=== PATIENT | male | born 1935 | race Asian ===

== ENCOUNTER 2017-03-25 11:57 | Emergency (ER) | payer MEDICARE ==
[~2017-03-25] VITALS: Ht 172.7 cm; Wt 90.7 kg
[~2017-03-25 11:57] MED LIST: HYDR-4075; LISI-607
[2017-03-25] MEDS ORDERED: ALBUTEROL FS 2.5 MG/3 ML VIAL.NEB NEB ONE (12:30)
[2017-03-25] MEDS ORDERED: predniSONE 20 MG TABLET PO ONE (12:30)
[2017-03-25] MEDS ORDERED: IPRATROPIUM NEB FS 0.5 MG/2.5 ML AMPUL.NEB NEB ONE (12:30)
[2017-03-25] MEDS ORDERED: predniSONE 20 MG TABLET ONE (12:39)
[2017-03-25] MEDS ORDERED: IPRATROPIUM NEB FS 0.5 MG/2.5 ML AMPUL.NEB ONE (12:54)
[2017-03-25] MEDS ORDERED: ALBUTEROL FS 2.5 MG/3 ML VIAL.NEB ONE (12:54)
[2017-03-25 13:42] VITALS: BP 168/80
== END 2017-03-25 13:43 | disposition home or self-care (01) ==
LOC: ER 11:58
DX: J45.901 Unspecified asthma with (acute) exacerbation (principal); I10 Essential (primary) hypertension
CPT/HCPCS: 71010; 94640 ×2; 94799; 99284; A4606; J7512; Z7610

== ENCOUNTER 2018-02-02 08:36 | Outpatient (CLI) | payer MEDICARE ==
[2018-02-02 09:35] LABS: APPEARANCE,URINE CLEAR (CLEAR); BILIRUBIN,URINE NEGATIVE (NEGATIVE); BLOOD, URINE NEGATIVE Ery/uL (NEGATIVE); COLOR,URINE YELLOW (YELLOW); KETONES,URINE NEGATIVE (NEGATIVE); LEUKOCYTE ESTERASE ,URINE NEGATIVE (NEGATIVE); NITRITE, URINE NEGATIVE (NEGATIVE); PH,URINE 7.5 (5.0-8.0); PROTEIN,URINE NEGATIVE (NEGATIVE); UGLUCOSE NEGATIVE (NEGATIVE)
[2018-02-02 09:45] LABS: ALANINE AMINOTRANSFERASE 35 U/L (12-78); ALBUMIN 3.6 g/dL (3.4-5.0); ALKALINE PHOSPHATASE 48 U/L (46-116); ASPARTATE AMINOTRANSFERASE 28 U/L (15-37); BILIRUBIN,TOTAL 1.6 mg/dL (0.2-1.0); CALCIUM, SERUM 9.3 mg/dL (8.5-10.1); CARBON DIOXIDE 33 mmol/L (21-32); CHLORIDE 105 mmol/L (98-107); GLUCOSE 100 mg/dL (74-106); SODIUM SERUM 144 mmol/L (136-145); TOTAL PROTEIN, SERUM 7.6 g/dL (6.4-8.2); UREA NITROGEN, BLOOD 29 mg/dL (7-18)
[2018-02-02 09:55] LABS: BASOPHILS % (AUTO) 0.8 % (0.0-2.0); EOSINOPHILS % (AUTO) 9.5 % (0.0-6.0); HEMATOCRIT 39 % (39-51); HEMOGLOBIN 13.2 g/dL (13.5-17.5); LYMPHOCYTES # (AUTO) 1.3 /CMM (0.8-4.8); LYMPHOCYTES % (AUTO) 31.4 % (20.0-44.0); MEAN CORPUSCULAR HGB CONC 34 g/dl (31.0-36.0); MEAN CORPUSCULAR VOLUME 90 fL (80-96); MONOCYTES # (AUTO) 0.3 /CMM (0.1-1.30); MONOCYTES % (AUTO) 7.2 % (2.0-12.0); NEUTROPHILS # (AUTO) 2.1 /CMM (1.8-8.9); NEUTROPHILS % (AUTO) 51.1 % (43.0-81.0); PLATELET COUNT (AUTO) 215 /CMM (150-450); RDW COEFFICIENT OF VARIATION 13.7 (11.5-15.0); RED BLOOD CELL COUNT(AUTO) 4.38 MIL/uL (4.5-6.0); WHITE BLOOD COUNT (AUTO) 4.1 K/uL (4.3-11.0)
[2018-02-02 10:00] LABS: CHOLESTEROL 136 mg/dL (<200); HDL CHOLESTEROL 57 mg/dL (40-60); LDL 75 mg/dL (0-99); PROSTATE SPECIFIC ANTIGEN SCR 12.31 ng/mL (0.00-4.00); THYROID STIMULATING HORMONE 1.671 uIU/mL (0.358-3.74); TRIGLYCERIDES 56 mg/dL (30-150)
[2018-02-02 10:21] LABS: BACTERIA,URINE Rare /HPF (None Seen); RBC,URINE 0-2 /HPF (0-2); SQUAMOUS EPITHELIAL CELL,UR Rare /HPF (None Seen); WBC,URINE 0-2 /HPF (0-3)
== END 2018-02-02 23:59 | disposition home or self-care (01) ==
LOC: LAB 08:36
PROVIDERS: ATTEND Legal Medicine
DX: I10 Essential (primary) hypertension (principal); E03.9 Hypothyroidism, unspecified; R79.89 Other specified abnormal findings of blood chemistry
CPT/HCPCS: 36415; 80053-TC; 80061-TC; 81000-TC; 82306; 84153-TC; 84443-TC; 85025-TC

== ENCOUNTER 2018-03-11 07:39 | Outpatient (CLI) | payer MEDICARE ==
[2018-03-11 08:37] LABS: ALANINE AMINOTRANSFERASE 40 U/L (12-78); ALBUMIN 3.6 g/dL (3.4-5.0); ALKALINE PHOSPHATASE 45 U/L (46-116); ASPARTATE AMINOTRANSFERASE 29 U/L (15-37); BILIRUBIN,TOTAL 1.8 mg/dL (0.2-1.0); CALCIUM, SERUM 9.3 mg/dL (8.5-10.1); CARBON DIOXIDE 35 mmol/L (21-32); CHLORIDE 105 mmol/L (98-107); GLUCOSE 97 mg/dL (74-106); POTASSIUM 3.8 mmol/L (3.5-5.1); SODIUM SERUM 142 mmol/L (136-145); TOTAL PROTEIN, SERUM 7.7 g/dL (6.4-8.2); UREA NITROGEN, BLOOD 31 mg/dL (7-18)
[2018-03-11 08:42] LABS: INR 0.95 (0.87-1.13)
[2018-03-11 08:49] LABS: APPEARANCE,URINE CLEAR (CLEAR); BILIRUBIN,URINE NEGATIVE (NEGATIVE); BLOOD, URINE NEGATIVE Ery/uL (NEGATIVE); COLOR,URINE YELLOW (YELLOW); KETONES,URINE NEGATIVE (NEGATIVE); LEUKOCYTE ESTERASE ,URINE NEGATIVE (NEGATIVE); NITRITE, URINE NEGATIVE (NEGATIVE); PROTEIN,URINE NEGATIVE (NEGATIVE); UGLUCOSE NEGATIVE (NEGATIVE); UROBILINOGEN,URINE 0.2 EU/dL (0.2)
[2018-03-11 09:15] LABS: BASOPHILS % (AUTO) 0.6 % (0.0-2.0); EOSINOPHILS % (AUTO) 7.2 % (0.0-6.0); HEMATOCRIT 38 % (39-51); HEMOGLOBIN 12.9 g/dL (13.5-17.5); LYMPHOCYTES # (AUTO) 1.7 /CMM (0.8-4.8); LYMPHOCYTES % (AUTO) 33.2 % (20.0-44.0); MEAN CORPUSCULAR HEMOGLOBIN 30 PG (26.0-33.0); MEAN CORPUSCULAR HGB CONC 34 g/dl (31.0-36.0); MEAN CORPUSCULAR VOLUME 89 fL (80-96); MONOCYTES # (AUTO) 0.4 /CMM (0.1-1.30); MONOCYTES % (AUTO) 8.1 % (2.0-12.0); NEUTROPHILS # (AUTO) 2.6 /CMM (1.8-8.9); NEUTROPHILS % (AUTO) 50.9 % (43.0-81.0); PLATELET COUNT (AUTO) 206 /CMM (150-450); RDW COEFFICIENT OF VARIATION 13.5 (11.5-15.0); WHITE BLOOD COUNT (AUTO) 5.1 K/uL (4.3-11.0)
== END 2018-03-11 23:59 | disposition home or self-care (01) ==
LOC: LAB 07:39
PROVIDERS: ATTEND Legal Medicine
DX: Z01.818 Encounter for other preprocedural examination (principal); R97.20 Elevated prostate specific antigen [PSA]
CPT/HCPCS: 36415; 80053-TC; 81000-TC; 85025-TC; 85610-TC; 85730-TC; 87086-TC

== ENCOUNTER 2018-10-14 00:25 | Emergency (ER) | payer MEDICARE, OTHER ==
[~2018-10-14] VITALS: Ht 170.2 cm; Wt 88.0 kg
[~2018-10-14 00:25] MED LIST changes: -LISI-607; +LISI-607 PO
--- NOTE | 2018-10-14 00:35 | NUR ---
PT BIB FRIEND L FOREARM DISCOLORATION AND SWELLING. PT S/P IRON GATE CLOSING ON HIS ARM. PT IN BED 7. WILL CONTINUE TO MONITOR.
[2018-10-14] MEDS ORDERED: HYDROCODONE/APAP 10/325MG 1 EA TABLET ONE (00:55)
[2018-10-14] MEDS ORDERED: ONDANSETRON 4 MG TAB.RAPDIS ONE (00:55)
[2018-10-14] MEDS ORDERED: TDAP [DIPH/PERTUSSIS/TET] 0.5 ML VIAL IM ONE ×2 (00:56→01:00)
[2018-10-14] MEDS ORDERED: SULFAMETH/TRIMETH 800/160 MG 1 UDTAB TABLET PO ONE ×2 (00:56→01:00)
[2018-10-14] MEDS ORDERED: ONDANSETRON 4 MG TAB.RAPDIS SL ONE (01:00)
[2018-10-14] MEDS ORDERED: HYDROCODONE/APAP 10/325MG 1 EA TABLET PO ONE (01:00)
[2018-10-14 01:01] LABS: BASOPHILS # (AUTO) 0.1 /CMM (0.0-0.2); BASOPHILS % (AUTO) 1.3 % (0.0-2.0); EOSINOPHILS % (AUTO) 7.2 % (0.0-6.0); HEMATOCRIT 40 % (39-51); HEMOGLOBIN 13.3 g/dL (13.5-17.5); LYMPHOCYTES # (AUTO) 1.5 /CMM (0.8-4.8); LYMPHOCYTES % (AUTO) 23.4 % (20.0-44.0); MEAN CORPUSCULAR HGB CONC 34 g/dl (31.0-36.0); MEAN CORPUSCULAR VOLUME 91 fL (80-96); MONOCYTES # (AUTO) 0.6 /CMM (0.1-1.30); NEUTROPHILS # (AUTO) 3.6 /CMM (1.8-8.9); NEUTROPHILS % (AUTO) 58.1 % (43.0-81.0); PLATELET COUNT (AUTO) 216 /CMM (150-450); RED BLOOD CELL COUNT(AUTO) 4.35 MIL/uL (4.5-6.0); WHITE BLOOD COUNT (AUTO) 6.2 K/uL (4.3-11.0)
[2018-10-14 01:09] LABS: CALCIUM, SERUM 9.1 mg/dL (8.5-10.1); CARBON DIOXIDE 31 mmol/L (21-32); CHLORIDE 102 mmol/L (98-107); CREATININE 1.1 mg/dL (0.6-1.3); GLUCOSE 111 mg/dL (74-106); POTASSIUM 3.5 mmol/L (3.5-5.1); SODIUM SERUM 140 mmol/L (136-145); UREA NITROGEN, BLOOD 29 mg/dL (7-18)
[2018-10-14 01:15] LABS: ALANINE AMINOTRANSFERASE 47 U/L (12-78); ALBUMIN 3.5 g/dL (3.4-5.0); ALKALINE PHOSPHATASE 57 U/L (46-116); ASPARTATE AMINOTRANSFERASE 50 U/L (15-37); BILIRUBIN,TOTAL 1.8 mg/dL (0.2-1.0); TOTAL PROTEIN, SERUM 7.4 g/dL (6.4-8.2)
--- NOTE | 2018-10-14 01:40 | NUR ---
TECH BEDSIDE FOR WOUNDCARE AND CASTING
--- NOTE | 2018-10-14 02:11 | NUR ---
Patient discharged to home in stable condition. Written and verbal after care instructions given. Patient verbalizes understanding of instruction.
[2018-10-14 02:12] VITALS: BP 155/88
== END 2018-10-14 02:14 | disposition home or self-care (01) ==
LOC: ER 00:27
DX: S52.532A Colles' fracture of left radius, initial encounter for closed fracture (principal); L03.114 Cellulitis of left upper limb; I10 Essential (primary) hypertension; J45.909 Unspecified asthma, uncomplicated; E78.00 Pure hypercholesterolemia, unspecified; Z98.49 Cataract extraction status, unspecified eye; Z60.2 Problems related to living alone; W26.8XXA Contact with other sharp object(s), not elsewhere classified, initial encounter; Y93.89 Activity, other specified; Y92.89 Other specified places as the place of occurrence of the external cause; Y99.8 Other external cause status
CPT/HCPCS: 36415; 73090-TC; 73130-TC; 80053-TC; 85025-TC; 85610-TC; 90715; Q0162

== ENCOUNTER 2018-10-20 13:33 | Outpatient (CLI) | payer MEDICARE, OTHER ==
[2018-10-20 14:16] LABS: APPEARANCE,URINE SL CLOUDY (CLEAR); BASOPHILS # (AUTO) 0.1 /CMM (0.0-0.2); BASOPHILS % (AUTO) 1.1 % (0.0-2.0); BILIRUBIN,URINE 1+ (NEGATIVE); BLOOD, URINE NEGATIVE Ery/uL (NEGATIVE); COLOR,URINE YELLOW (YELLOW); EOSINOPHILS % (AUTO) 8.7 % (0.0-6.0); HEMATOCRIT 37 % (39-51); HEMOGLOBIN 12.1 g/dL (13.5-17.5); KETONES,URINE TRACE (NEGATIVE); LEUKOCYTE ESTERASE ,URINE NEGATIVE (NEGATIVE); LYMPHOCYTES # (AUTO) 1.2 /CMM (0.8-4.8); LYMPHOCYTES % (AUTO) 20.3 % (20.0-44.0); MEAN CORPUSCULAR HGB CONC 33 g/dl (31.0-36.0); MEAN CORPUSCULAR VOLUME 92 fL (80-96); MONOCYTES # (AUTO) 0.5 /CMM (0.1-1.30); MONOCYTES % (AUTO) 8.1 % (2.0-12.0); NEUTROPHILS # (AUTO) 3.6 /CMM (1.8-8.9); NEUTROPHILS % (AUTO) 61.8 % (43.0-81.0); NITRITE, URINE NEGATIVE (NEGATIVE); PLATELET COUNT (AUTO) 230 /CMM (150-450); PROTEIN,URINE NEGATIVE (NEGATIVE); RED BLOOD CELL COUNT(AUTO) 3.97 MIL/uL (4.5-6.0); UGLUCOSE NEGATIVE (NEGATIVE); WHITE BLOOD COUNT (AUTO) 5.8 K/uL (4.3-11.0)
[2018-10-20 14:35] LABS: ALANINE AMINOTRANSFERASE 189 U/L (12-78); ALBUMIN 3.5 g/dL (3.4-5.0); ALKALINE PHOSPHATASE 137 U/L (46-116); ASPARTATE AMINOTRANSFERASE 115 U/L (15-37); BILIRUBIN,TOTAL 1.5 mg/dL (0.2-1.0); CALCIUM, SERUM 8.8 mg/dL (8.5-10.1); CARBON DIOXIDE 29 mmol/L (21-32); CHLORIDE 100 mmol/L (98-107); CREATININE 1.5 mg/dL (0.6-1.3); GLUCOSE 105 mg/dL (74-106); POTASSIUM 4.3 mmol/L (3.5-5.1); SODIUM SERUM 136 mmol/L (136-145); TOTAL PROTEIN, SERUM 7.4 g/dL (6.4-8.2); UREA NITROGEN, BLOOD 32 mg/dL (7-18)
[2018-10-20 14:44] LABS: BACTERIA,URINE None seen /HPF (None Seen); RBC,URINE NONE SEEN /HPF (0-2); SQUAMOUS EPITHELIAL CELL,UR Few /HPF (None Seen); WBC,URINE NONE SEEN /HPF (0-3)
== END 2018-10-20 23:59 | disposition home or self-care (01) ==
LOC: RAD 13:33
PROVIDERS: ATTEND Legal Medicine
DX: I70.0 Atherosclerosis of aorta (principal); D64.9 Anemia, unspecified; I10 Essential (primary) hypertension; N39.0 Urinary tract infection, site not specified; R53.1 Weakness; D68.59 Other primary thrombophilia; Z95.1 Presence of aortocoronary bypass graft
CPT/HCPCS: 36415; 71046; 80053-TC; 81000-TC; 85025-TC; 85610-TC; 85730-TC

== ENCOUNTER 2018-10-23 08:37 | Inpatient (IN) | payer MEDICARE, OTHER ==
[~2018-10-23] VITALS: Ht 172.7 cm; Wt 81.6 kg
[2018-10-23] MEDS ORDERED: BACITRACIN 50000 UNITS/VIAL ONE (09:51)
[2018-10-23] MEDS ORDERED: BUPIVACAINE MPF 0.5% W/EPI INJ 30 ML VIAL ONE (09:51)
[2018-10-23] MEDS ORDERED: LIDOCAINE HCL/PF 1% 30 ML SDV ONE (09:51)
[2018-10-23] MEDS ORDERED: ANESTHESIA TRAY IN PYXIS 1 EA TRAY MC ONE (09:51)
[2018-10-23] MEDS ORDERED: FENTANYL PF 100MCG/2ML AMPUL ONE (10:02)
[2018-10-23] MEDS ORDERED: BUPIVACAINE 0.5 % PF 150 MG/30 ML VIAL ONE (10:19)
[2018-10-23] MEDS ORDERED: HYDROMORPHONE INJ 2 MG/ML DISP.SYRIN ONE (11:04)
[2018-10-23] MEDS ORDERED: LABETALOL HCL IV 100MG VIAL ONE (12:37)
[2018-10-23] MEDS ORDERED: IV LR 1000 ML 1,000 ML IV PRN (13:00)
--- NOTE | 2018-10-23 13:43 | NUR ---
ms rn received a new admission from recovery, awake,alert oriented x3,not in any form of distress, s/p surgery ORIFof left arm, site covered w/ dressing dry and intact,arm sling on,denies pain at this time, family at bedside,all needs attended.
[2018-10-23 13:50] VITALS: BP 154/90
[2018-10-23 14:00] VITALS: BP 146/70
[2018-10-23] MEDS: HYDROCODONE/APAP 5/325MG 1 EACH TABLET PO PRN ×2 (15:58→21:19)
[2018-10-23 16:00] VITALS: BP 140/70
--- NOTE | 2018-10-23 17:06 | NUR ---
MS RN ON BED, NO DISTRESS NOTED,ALL NEEDS ATTENDED.
--- NOTE | 2018-10-23 19:30 | NUR ---
MS RN NOTE: PATIENT RESTING IN BED, NO ACUTE DISTRESS NOTED. BREATHING EVEN AND UNLABORED, NO SOB NOTED. LEFT ARM IN SLING. BED LOCKED AND IN LOWEST POSITION, CALL LIGHT IN REACH. WILL CONTINUE TO MONITOR.
[2018-10-23 20:00] VITALS: BP 134/71
[2018-10-23] MEDS: VANCOMYCIN 1 GM in IV D5W 250ml IV SCH (21:19)
--- NOTE | 2018-10-23 21:30 | NUR ---
MS RN NOTE: PATIENT COMPLAINS OF PAIN TO LEFT SHOULDER/ARM, NORCO 5/325MG 1 TAB ORAL PER MD ORDER. WILL CONTINUE TO MONITOR.
[2018-10-24] MEDS: HYDROCODONE/APAP 5/325MG 1 EACH TABLET PO PRN ×5 (01:18→19:36)
--- NOTE | 2018-10-24 01:20 | NUR ---
MS RN NOTE: PATIENT COMPLAINS OF PAIN TO LEFT SHOULDER/ARM 04/21, NORCO 5/325MG 1 TAB ORAL PER MD ORDER. WILL CONTINUE TO MONITOR.
--- NOTE | 2018-10-24 06:04 | NUR ---
MS RN NOTE: PATIENT RESTING IN BED, NO ACUTE DISTRESS NOTED. BREATHING EVEN AND UNLABORED, NO SOB NOTED. LEFT ARM IN SLING. BED LOCKED AND IN LOWEST POSITION, CALL LIGHT IN REACH. WILL ENDORSE TO DAY NURSE TO CONTINUE WITH PLAN OF CARE.
--- NOTE | 2018-10-24 07:26 | NUR ---
MS RN OPENING NOTES PATIENT RECEIVED AWAKE AND WATCHING TV. A/O X4. ABLE TO MAKE NEEDS KNOWN. NO C/O PAIN OR DISCOMFORTS VOICED AT THIS TIME. ON ROOM AIR, BREATHING EVEN AND UNLABORED, NO SOB NOTED. LEFT ARM IN SLING IN PLACE. IV ACCESS ON RFA INTACT AND PATENT, IVF OF LR AT 75ML/HR INFUSING, NO S/S OF INFILTRATIONS NOTED. BED LOCKED AND IN LOWEST POSITION, CALL LIGHT IN REACH. WILL CONTINUE TO MONITOR.
[2018-10-24 08:00] VITALS: BP 148/75
[2018-10-24] MEDS ORDERED: NIFE30TA89 PO (08:15)
[2018-10-24] MEDS ORDERED: ASPI-1169 PO (08:15)
[2018-10-24] MEDS ORDERED: MULT-1168 PO (08:15)
[2018-10-24] MEDS ORDERED: SIMV10TA6 PO (08:15)
[2018-10-24] MEDS: VANCOMYCIN 1 GM in IV D5W 250ml IV SCH (08:38)
--- NOTE | 2018-10-24 10:15 | NUR ---
RN NOTES/ PAIN MANAGEMENT PATIENT COMPLAINED OF PAIN ON HIS LEFT ARM WITH SCALE OF 7/10, PRN NORCO 5/325MG PO GIVEN. WILL CONTINUE TO MONITOR AND REASSESS PT.
--- NOTE | 2018-10-24 14:42 | NUR ---
RN NOTES/ PAIN MANAGEMENT PATIENT IN BED AND COMPLAINED OF PAIN ON HIS LEFT ARM WITH SCALE OF 7/10, PRN NORCO 5/325MG PO GIVEN AT 1441. SLING KEPT IN PLACE AND REMAIN NWB ON LUE. WILL CONTINUE TO MONITOR AND REASSESS PT.
[2018-10-24 16:00] VITALS: BP 149/73
[2018-10-24] MEDS: SIMVASTATIN 10 MG TABLET PO SCH (17:29)
--- NOTE | 2018-10-24 18:44 | NUR ---
MS RN CLOSING NOTES PATIENT AWAKE AND RESTING IN BED AT MODERATE HIGH BACKREST POSITION. A/O X4. PLEASANT AND COMPLIANT. ABLE TO MAKE NEEDS KNOWN, PAIN ON HIS LEFT ARM TOLERABLE AT THIS TIME. LUE NWB WITH LEFT ARM IN SLING IN PLACE. ON ROOM AIR, BREATHING EVEN AND UNLABORED, NO ACUTE RESPIRATORY DISTRESS NOTED THROUGHOUT THE DAY. IV ACCESS ON RFA INTACT AND PATENT, FLUSHES WELL. ALL NEEDS AND CARE ATTENDED WELL. SAFETY MEASURES KEPT IN PLACE. BED LOCKED AND IN LOWEST POSITION. CALL LIGHT AND BEDSIDE TABLE WITHIN EASY REACH OF PT. WILL ENDORSE TO INSTRUMENT MAKER APPRENTICE NURSE FOR YAMILETH.
--- NOTE | 2018-10-24 19:26 | NUR ---
MS/RN OPENING NOTES RECEIVED PATIENT IN BED. ALERT. ORIENTED X3. ABLE TO MAKE NEEDS KNOWN, VERBALIZE PAIN OF 5/10 ON LEFT WRIST, REQUESTING FOR NORCO, RESPIRATIONS EVEN AND UNLABORED, SKIN WARM TO TOUCH, DISCUSSED PLAN OF CARE VERBALIZED TO SLEEP WELL AND NOT TO HAVE ANY PAIN. FLUIDS OFFERED, CALL LIGHTS WITHIN REACH, WILL MONITOR.BED LOCKED.
[2018-10-24 19:58] VITALS: BP 149/79
[2018-10-24 20:00] VITALS: BP 149/79
--- NOTE | 2018-10-24 20:05 | NUR ---
MS/RN NOTES LEFT ARM ON SLING,
--- NOTE | 2018-10-25 06:35 | NUR ---
316-1/MS/RN NOTES PATIETN ABLE TO SLEEP DURING THE NIGHT, PAIN MANAGED AND RELIEVED, ALERT, ORIENTED, ABLE TO VERBALIZE NEEDS, SELF CARE AND PARTICIPATIVE, BELONGINGS WITHIN REACH, BED LOCKED, CALL LIGTHS WITHIN REACH,WILL ENDORSE TO AM RN FOR YAMILETH.
--- NOTE | 2018-10-25 07:10 | NUR ---
RN OPENING NOTES PATIENT RECEIVED AWAKE SITTING ON THE CHAIR. A/O X4. ABLE TO MAKE NEEDS KNOWN. NO C/O PAIN OR DISCOMFORTS AT THIS TIME. ON ROOM AIR, BREATHING EVEN AND UNLABORED, NO SOB NOTED. LEFT ARM SLING IN PLACE. IV ACCESS ON RFA INTACT AND PATENT, NO S/S OF INFILTRATIONS NOTED. BED LOCKED AND IN LOWEST POSITION, CALL LIGHT IN REACH. WILL CONTINUE TO MONITOR ACCORDINGLY
[2018-10-25 08:00] VITALS: BP 137/70
[2018-10-25] MEDS: ASPIRIN 81 MG TAB.CHEW PO SCH (09:09)
[2018-10-25] MEDS: NIFEdipine XL (30MG) 30 MG TAB PO SCH (09:09)
[2018-10-25] MEDS: LISINOPRIL (5MG) 5 MG TABLET PO SCH (09:10)
[2018-10-25] MEDS: HYDROCODONE/APAP 5/325MG 1 EACH TABLET PO PRN ×2 (13:30→21:40)
[2018-10-25 16:00] VITALS: BP 130/75
[2018-10-25] MEDS: SIMVASTATIN 10 MG TABLET PO SCH (18:01)
--- NOTE | 2018-10-25 19:20 | NUR ---
RN CLOSING NOTES PATIENT IN STABLE CONDITION. ALL NEEDS ATTENDED AND PROVIDED. ALL DUE MEDICATIONS GIVEN ORDERED. KEPT PATIENT SAFE AND COMFORTABLE. BED IN LOW/LOCKED POSITION, SIDERAILS UPX2, CALLL LIGHT IN REACH. ENDORSED TO NIGHT RN FOR YAMILETH.
[2018-10-25 20:00] VITALS: BP 141/73
--- NOTE | 2018-10-25 20:00 | NUR ---
MS RN NOTES RECEIVED PATIENT SITTING UP IN CHAIR IN ROOM WITH NO DISTRESS NOTED. CALL LIGHT WITHIN REACH. LEFT ARM SLING INTACT AND NOTED WITH GOOD CIRCULATION. NWB ON LEFT UPPER ARM MAINTAINED ORDERED. NO C/O PAIN OR DISCOMFORT. PERIPHERAL LINE INTACT AND PATENT. ALL BELONGINGS KEPT NEAR PATIENT. WILL CONTINUE TO MONITOR.
--- NOTE | 2018-10-26 06:01 | NUR ---
MS RN CLOSING NOTES PATIENT ASLEEP IN BED WITH NO DISTRESS NOTED. CALL LIGHT WITHIN REACH. NO C/O PAIN OR DISCOMFORT. LEFT ARM SLING REMAINS INTACT AND NOTED WITH GOOD CIRCULATION. NWB ON LEFT UPPER ARM MAINTAINED ORDERED. PERIPHERAL LINE INTACT AND PATENT. BED IN LOW LOCK SETTING. ALL BELONGINGS KEPT NEAR BEDSIDE. WILL ENDORSE TO ONCOMING SHIFT.
[2018-10-26 08:00] VITALS: BP 139/57
[2018-10-26] MEDS: LISINOPRIL (5MG) 5 MG TABLET PO SCH (08:37)
[2018-10-26] MEDS: NIFEdipine XL (30MG) 30 MG TAB PO SCH (08:37)
[2018-10-26] MEDS: ASPIRIN 81 MG TAB.CHEW PO SCH (08:37)
[2018-10-26] MEDS: HYDROCODONE/APAP 5/325MG 1 EACH TABLET PO PRN ×2 (12:50→20:59)
[2018-10-26 15:35] VITALS: BP 108/70
[2018-10-26] MEDS: SIMVASTATIN 10 MG TABLET PO SCH (17:25)
--- NOTE | 2018-10-26 19:24 | NUR ---
RN CLOSING NOTES PATIENT IN STABLE CONDITION. ALL NEEDS ATTENDED AND PROVIDED. ALL DUE MEDICATIONS GIVEN ORDERED. KEPT PATIENT SAFE AND COMFORTABLE. BED IN LOW/LOCKED POSITION, SIDERAILS UPX2, CALL LIGHT IN REACH. ENDORSED TO NIGHT RN FOR YAMILETH.
--- NOTE | 2018-10-26 19:55 | NUR ---
MS RN NOTE: PATIENT RESTING IN BED, NO ACUTE DISTRESS NOTED. BREATHING EVEN AND UNLABORED, NO SOB NOTED. IV TO RFA IN PLACE. LEFT ARM IN SLING. BED LOCKED AND IN LOWEST POSITION, CALL LIGHT IN REACH, WILL CONTINUE TO MONITOR.
[2018-10-26 20:00] VITALS: BP 137/73
--- NOTE | 2018-10-26 21:00 | NUR ---
MS RN NOTE: PATIENT COMPLAINS OF PAIN TO LEFT ARM 04/21, NORCO 5/325MG 1 TAB ORAL GIVEN PER MD ORDER, WILL CONTINUE TO MONITOR.
[2018-10-27] MEDS: HYDROCODONE/APAP 5/325MG 1 EACH TABLET PO PRN ×2 (04:16→13:00)
--- NOTE | 2018-10-27 04:18 | NUR ---
MS RN NOTE: PATIENT COMPLAINS OF PAIN TO LEFT ARM 04/21, NORCO 5/325MG 1 TAB ORAL GIVEN PER MD ORDER, WILL CONTINUE TO MONITOR.
--- NOTE | 2018-10-27 06:15 | NUR ---
MS RN NOTE: PATIENT RESTING IN BED, NO ACUTE DISTRESS NOTED. BREATHING EVEN AND UNLABORED, NO SOB NOTED. IV TO RFA IN PLACE. LEFT ARM IN SLING. BED LOCKED AND IN LOWEST POSITION, CALL LIGHT IN REACH, WILL ENDORSE TO DAY NURSE TO CONTINUE WITH PLAN OF CARE.
--- NOTE | 2018-10-27 07:22 | NUR ---
RN OPENING NOTES PT WAS RECEIVED IN BED AT LOWEST AND LOCKED POSITION WITH SIDE RAILS UP X2, A/O X4, BREATHING EVEN AND UNLABORED ON RA, NO S/S OF PAIN OR DISTRESS NOTED, IV IS PATENT AND INTACT, PT NOTED TO BE S/P ORIF THAT WAS DONE ON THE , SAFETY PRECAUTIONS IN PLACE, CALL LIGHT WITHIN REACH, WILL MONITOR ACCORDINGLY
[2018-10-27 08:00] VITALS: BP 131/79
[2018-10-27 08:20] VITALS: BP 131/79
[2018-10-27] MEDS: ASPIRIN 81 MG TAB.CHEW PO SCH (08:20)
[2018-10-27] MEDS: LISINOPRIL (5MG) 5 MG TABLET PO SCH (08:20)
[2018-10-27] MEDS: NIFEdipine XL (30MG) 30 MG TAB PO SCH (08:20)
--- NOTE | 2018-10-27 14:39 | NUR ---
DISCHARGE NOTE PT WAS D/C IN MEDICALLY STABLE CONDITION BACK HOME AT THIS TIME. HE WAS ESCORTED BY ME WHERE THEY LEFT IN THEIR [employer] CAR WITH THEIR CUSTOMER RELATIONS SPECIALIST KAMILAH. IV AND ID BAND WERE REMOVED. DISCHARGE PAPERWORK, EXITCARE, BELONGINGS LIST WERE ALL DISCUSSED AND SIGNED BY THE PATIENT. HE LEFT WITH ALL HIS BELONGINGS. NO SKIN WOUNDS WERE NOTED, DRESSING ON HIS LEFT ARM WAS LEFT INTACT AND WAS INFORMED TO FOLLOW UP WITHIN A WEEK WITH DR. CALDERON AND RADHA. ALL NEEDS WERE ATTENDED TO DURING HIS STAY.
== END 2018-10-27 14:30 | disposition home or self-care (01) | DRG 512 ==
LOC: DS 08:37 → MED 10:42
PROVIDERS: ADMIT Legal Medicine; ATTEND Legal Medicine
PROC: 0PSJ04Z Reposition Left Radius with Internal Fixation Device, Open Approach (ICD-10-PCS; principal; 2018-10-23)
DX: S52.502A Unspecified fracture of the lower end of left radius, initial encounter for closed fracture (principal); W23.0XXA Caught, crushed, jammed, or pinched between moving objects, initial encounter; Y92.009 Unspecified place in unspecified non-institutional (private) residence as the place of occurrence of the external cause; E78.5 Hyperlipidemia, unspecified; I10 Essential (primary) hypertension; N40.0 Benign prostatic hyperplasia without lower urinary tract symptoms; Z79.899 Other long term (current) drug therapy
CPT/HCPCS: 36415; 71046; 73100-TC; 80053-TC; 81000-TC; 85025-TC; 85610-TC; 85730-TC; 87081-TC; A4565; A6253; A6402; G0378; J0690; J1100; J1170; J2405; J2704; J3010; J3370; J3490; J7060; J7120

== ENCOUNTER 2019-05-31 22:53 | Emergency (ER) | payer MEDICARE, OTHER ==
[~2019-05-31] VITALS: Ht 172.7 cm; Wt 71.7 kg
[~2019-05-31 22:53] MED LIST changes: +ASPI-1169 PO; -HYDR-4075; +MULT-1168 PO; +NIFE30TA89 PO; +SIMV10TA6 PO
[2019-05-31 23:39] LABS: BASOPHILS % (AUTO) 0.5 % (0.0-2.0); EOSINOPHILS % (AUTO) 3.3 % (0.0-6.0); HEMATOCRIT 32 % (39-51); HEMOGLOBIN 10.7 g/dL (13.5-17.5); LYMPHOCYTES % (AUTO) 18.7 % (20.0-44.0); MEAN CORPUSCULAR HGB CONC 34 g/dl (31.0-36.0); MEAN CORPUSCULAR VOLUME 89 fL (80-96); MONOCYTES # (AUTO) 0.5 /CMM (0.1-1.30); MONOCYTES % (AUTO) 9.2 % (2.0-12.0); NEUTROPHILS # (AUTO) 3.7 /CMM (1.8-8.9); NEUTROPHILS % (AUTO) 68.3 % (43.0-81.0); PLATELET COUNT (AUTO) 368 /CMM (150-450); RED BLOOD CELL COUNT(AUTO) 3.57 MIL/uL (4.5-6.0); WHITE BLOOD COUNT (AUTO) 5.4 K/uL (4.3-11.0)
[2019-05-31 23:51] LABS: CALCIUM, SERUM 9.3 mg/dL (8.5-10.1); CARBON DIOXIDE 32 mmol/L (21-32); CHLORIDE 101 mmol/L (98-107); CREATININE 1.2 mg/dL (0.6-1.3); GLUCOSE 117 mg/dL (74-106); POTASSIUM 4.2 mmol/L (3.5-5.1); SODIUM SERUM 141 mmol/L (136-145); UREA NITROGEN, BLOOD 19 mg/dL (7-18)
[2019-06-01 02:09] VITALS: BP 155/97
== END 2019-06-01 02:10 | disposition home or self-care (01) ==
LOC: ER 22:59
DX: M17.12 Unilateral primary osteoarthritis, left knee (principal); I10 Essential (primary) hypertension; J45.909 Unspecified asthma, uncomplicated; E78.00 Pure hypercholesterolemia, unspecified; Z98.890 Other specified postprocedural states; Z60.2 Problems related to living alone; Z79.82 Long term (current) use of aspirin; Z79.899 Other long term (current) drug therapy; W18.39XA Other fall on same level, initial encounter; Y93.89 Activity, other specified; Y92.89 Other specified places as the place of occurrence of the external cause; Y99.8 Other external cause status
CPT/HCPCS: 36415; 71045-TC; 72100-TC; 73564-TC; 80048-TC; 85025-TC